=== PATIENT | female | born 1990 | race Caucasian/White ===

== ENCOUNTER 2019-06-14 14:06 | Emergency (ER) | payer OTHER, SELFPAY ==
[2019-06-14 14:24] VITALS: BP 129/75; PULSE 79; RESP 16; TEMP 36.1; O2SAT 95; BMI 36.6
--- NOTE | 2019-06-14 14:51 | NUR.SHIFT ---
Patient was at work when she got stuck with glass. Patient reports the glass stuck her in the tip of her left index finger.
--- NOTE | 2019-06-14 15:23 | ED_ITS ---
HPI - Extremity Problem General: Chief complaint: Extremity Injury, Upper Stated complaint: needle stick Time Seen by Provider: 06/14/19 14:55 History of Present Illness: HPI Narrative: Patient comes in today for complaints of a needlestick to her left index finger. Patient was cleaning up in surgery and reached down and punctured her skin in her left index finger with a piece of glass. Patient reports contamination with blood and body fluids. Patient reports no foreign body. Review of Systems General: Reports: 10 or more systems reviewed and unremarkable except in HPI and below Skin/Breast: Reports: other (left index finger) PFSH ED PFSH: Statuses (acute, chronic, etc) shown below reflect problem list status as previously entered and may not be historically accurate Social History Smoking and tobacco status: current every day smoker Physical Exam Const: COMMON NORMALS: no apparent distress and oriented x3 GENERAL APPEARANCE: cooperative HENMT: COMMON NORMALS: normocephalic, external ears normal, EAC's normal, TM's normal bilaterally and external nose normal HEAD & SCALP: normal to inspection and normocephalic FACE & SINUS: normal facial exam NOSE: external nose normal GENERAL EAR: hearing not grossly impaired EXTERNAL EAR: Yes external ears normal EXTERNAL AUDITORY CANAL: EAC's normal TYMPANIC MEMBRANE: TM's normal bilaterally MOUTH: oral and palatal mucosa normal THROAT: posterior oropharynx normal Eye: COMMON NORMALS: PERRL and EOMs intact bilaterally PUPIL: Yes PERRL Neck/C-Spine: COMMON NORMALS: full ROM and no lymphadenopathy Lymph: LYMPHATIC: no lymphedema noted Chest: COMMONS NORMALS: inspection of chest normal and palpation of chest normal Resp: COMMON NORMALS: normal respiratory effort and clear to auscultation bilaterally AUSCULTATION: clear to auscultation bilaterally Cardio: COMMON NORMALS: regular rate and regular rhythm RATE: regular rate RHYTHM: regular rhythm GI: COMMON NORMALS: normal to inspection, nondistended, normoactive bowel sounds and non-tender : COMMON NORMALS: Yes no CVA tenderness BLADDER/KIDNEY EXAM: Yes no CVA tenderness Back/Pelvis: COMMON NORMALS: no CVA tenderness and thoracic and lumbar spine normal to inspection Extremity: COMMON NORMALS: normal to inspection GENERAL: No edema Neuro: COMMON NORMALS: oriented x3, moves all extremities and no focal motor deficits Psych: COMMON NORMALS: mental status grossly normal and cooperative Skin: COMMON NORMALS: no rashes or lesions noted GENERAL SKIN EXAM: no rashes or lesions noted OTHER: small puncture wound to left index finger Course Vital Signs: Vital signs: Vital Signs Temperature 97 F L 06/14/19 14:24 Pulse Rate 79 06/14/19 14:24 Respiratory Rate 16 06/14/19 14:24 Blood Pressure 129/75 06/14/19 14:24 Pulse Oximetry 95 06/14/19 14:24 MDM - Extremity (Nontraumatic) MDM Narrative: Medical decision making narrative: Patient comes in with a injury to the left index finger from a puncture wound that occurred during surgical cleanup. Patient had gotten stuck by a possible shard of glass or bone fragment that was left on the floor after surgery. Exam noted no foreign body. Differential diagnosis wound infection, foreign body, need for treatment post exposure. Laboratory blood draw was done for CBC CMP and HIV and hepatitis B and C. Patient was started on prophylaxis postexposure medication. Patient was informed to follow-up with employee health nurse and referred to the packet for the number for her. Patient reported understanding of care plan and need for follow-up in 1 month. Lab Data: Labs: Lab Results 06/14/19 Range/Units 15:20 WBC 6.7 (4.0-10.0) 10^3/ uL RBC 4.96 (4.1-5.3) 10^6/u L Hgb 13.8 (11.5-15.3) g/dL Hct 42.8 (37.0-47.0) % MCV 86.3 (81-99) fL MCH 27.8 L (28.0-34.0) pg MCHC 32.2 (30.0-36.0) g/dL RDW 12.0 L (12.1-15.1) % Plt Count 294 (130-400) 10^3/c mm MPV 8.9 (7.4-10.4) fL Neut % (Auto) 67.9 % Lymph % (Auto) 23.0 % Dickson % (Auto) 8.3 % Eos % (Auto) 0.4 % Baso % (Auto) 0.3 % Neut # (Auto) 4.6 (1.8-7.7) 10^3/u L Lymph # (Auto) 1.5 (0.8-4.8) 10^3/u L Dickson # (Auto) 0.6 (0.2-0.9) 10^3/u L Eos # (Auto) 0.0 (0.0-0.8) 10^3/u L Baso # (Auto) 0.0 (0.0-0.1) 10^3/u L Nucleated RBC % (a uto) 0 % Nucleated RBCs # 0.0 /100WBC Discharge Plan Discharge Patient Disposition: Home, Self-Care Clinical Impression: Needle stick injury of finger Condition: Stable Prescriptions: New raltegravir 400 mg tablet 400 mg PO BID Qty: 56 RF: 0 emtricitabine-tenofovir (TDF) 200-300 mg tablet 1 tab PO DAILY Qty: 28 RF: 0 Discharge Orders: Discharge Order (Routine); Ordered 06/14/19 Ordered By: Preston Mayer Discharge Diet: Usual diet Discharge Activity: Increase activity as tolerated Patient Instructions: Needle Stick Injuries (ED) Activity Restrictions/Additional Instructions: Drink plenty of water Medications as directed Monitor site for infection Follow-up with employee health nurse Coding Level of Care Code ED Machine Engraver for Marilu Briones Exam Problem Focused
[2019-06-14 15:28] LABS: Basophils % 0.3 %; Eosinophils % 0.4 %; Hematocrit 42.8 % (37.0-47.0); Hemoglobin 13.8 g/dL (11.5-15.3); Lymphocytes # 1.5 10^3/uL (0.8-4.8); Mean Corpuscular HGB Conc 32.2 g/dL (30.0-36.0); Mean Corpuscular Hemoglobin 27.8 pg (28.0-34.0); Mean Corpuscular Volume 86.3 fL (81-99); Mean Platelet Volume 8.9 fL (7.4-10.4); Monocytes # 0.6 10^3/uL (0.2-0.9); Monocytes % 8.3 %; Neutrophils # 4.6 10^3/uL (1.8-7.7); Neutrophils % 67.9 %; Nucleated Red Blood Cells % 0 %; Platelet Count 294 10^3/cmm (130-400); Red Blood Count 4.96 10^6/uL (4.1-5.3); White Blood Count 6.7 10^3/uL (4.0-10.0)
[2019-06-14 15:45] LABS: Alanine Aminotransferase 17 U/L (0-33); Albumin Level 4.5 g/dL (3.5-5.2); Alkaline Phosphatase 83 IU/L (35-105); Anion Gap 16.5 (5-19); Aspartate Amino Transferase 20 U/L (0-32); Blood Urea Nitrogen 16 mg/dL (6-20); Calcium 9.9 mg/Dl (8.6-10.0); Carbon Dioxide 20 mmol/L (22-29); Chloride 104 mmol/L (98-107); Globulin 4.4 g/dL (1.3-4.6); Glomerular Filtration Rate 100.4 mL/min (90-130); Glucose 80 mg/dL (74-109); Potassium 3.5 mmol/L (3.5-5.1); Sodium 137 mmol/L (136-145); Total Bilirubin 0.3 mg/dL (0.15-1.2); Total Protein 8.9 g/dL (6.6-8.7)
[2019-06-14 15:46] VITALS: BP 134/83; PULSE 79; RESP 16; O2SAT 98
[2019-06-14 17:10] LABS: Hepatitis A Antibody IgM. Non-Reactive (Nonreactive); Hepatitis B Surface AB. 3.5 (0-8.5); Hepatitis B Surface Antigen. Non-Reactive (Nonreactive); Hepatitis C Virus Antibody Non-Reactive (Nonreactive)
[2019-06-15 08:31] LABS: HIV 1 & 2 Antibody Non-Reactive (Non-Reactiv); HIV 1 & 2 Antigen Non-Reactive (Non-Reactiv)
== END 2019-06-14 15:47 | disposition home or self-care (01) ==
PROVIDERS: Emergency Provider Nurse Practitioner Family
DX: S61.231A Puncture wound without foreign body of left index finger without damage to nail, initial encounter (principal); W46.0XXA Contact with hypodermic needle, initial encounter; Y92.234 Operating room of hospital as the place of occurrence of the external cause; Y99.0 Civilian activity done for income or pay; F17.210 Nicotine dependence, cigarettes, uncomplicated
CPT/HCPCS: 36415; 80053; 85025; 86705; 86706; 86709; 86803; 87340; 99281

== ENCOUNTER → 2019-07-22 10:32 | Outpatient (BNVA) | payer OTHER, SELFPAY | PROVIDERS: Visit Provider Obstetrics & Gynecology | DX: Z30.9 Encounter for contraceptive management, unspecified (principal) | CPT/HCPCS: 81025 ==

== ENCOUNTER → 2020-05-09 10:30 | Outpatient (BNVA) | payer OTHER, SELFPAY | PROVIDERS: Visit Provider Nurse Practitioner Women's Health | DX: Z01.419 Encounter for gynecological examination (general) (routine) without abnormal findings (principal); Z11.3 Encounter for screening for infections with a predominantly sexual mode of transmission; N76.0 Acute vaginitis; B96.89 Other specified bacterial agents as the cause of diseases classified elsewhere; N92.6 Irregular menstruation, unspecified; N60.19 Diffuse cystic mastopathy of unspecified breast | CPT/HCPCS: 87491; 87591; 87661; 88175 ==

== ENCOUNTER → 2020-10-24 11:20 | Outpatient (BNVA) | payer OTHER, SELFPAY | PROVIDERS: Visit Provider Obstetrics & Gynecology | DX: Z20.2 Contact with and (suspected) exposure to infections with a predominantly sexual mode of transmission (principal) | CPT/HCPCS: 87491; 87591; 87661 ==

== ENCOUNTER → 2021-01-17 15:34 | Outpatient (BNVA) | payer OTHER, SELFPAY | PROVIDERS: Visit Provider Nurse Practitioner Family | DX: R53.83 Other fatigue (principal); R00.2 Palpitations; R53.82 Chronic fatigue, unspecified; F41.1 Generalized anxiety disorder | CPT/HCPCS: 80053; 80061; 82607; 83036; 84443 ==

== ENCOUNTER 2021-10-14 18:25 | Emergency (ER) | payer OTHER, SELFPAY ==
--- NOTE | 2021-10-14 18:28 | W.ED.WOUNDLC ---
HPI - Wound/Laceration General: Stated Complaint: Needle Stick Time Seen by Provider: 10/14/21 18:27 History of Present Illness: Patient is a 30-year-old female comes to the ED with an accidental needlestick injury. 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 While the OR patient was being sutured up patient had multipleaccidental puncture wounds from suture in left hand. She denies any history of hepatitis. Denies any other complaints or symptoms. Associated symptoms: Denies chills, fever(s), nausea or vomiting Review of Systems Const: Denies: fever(s), chills or fatigue Eyes: Denies: change in vision or eye discomfort ENMT: Denies: throat pain, odynophagia, nasal discharge or nasal congestion Card: Denies: chest pain, palpitations, edema, swelling of feet/ankles, dyspnea on exertion or orthopnea Resp: Denies: dyspnea, productive cough or non-productive cough GI: Denies: abdominal pain, nausea, vomiting, diarrhea, constipation or hematochezia : Denies: flank pain, dysuria or hematuria Musc: Denies: neck pain, back pain or extremity swelling Skin/Breast: Reports: new lesions (Multiple small superficial puncture wounds to left index finger); Denies: rash Neuro: Denies: headache(s), numbness in extremities or weakness in extremities PFS ED PFSH: Medical History Concern about STD in female without diagnosis No pertinent past medical history neghx: htn,dm,thyroid,dvt/pe Surgical History No pertinent past surgical history Family History Grandmother Hypertension maternal Denies family history of Colon cancer Ovarian cancer Diabetes Heart disease Hypercholesteremia Breast cancer Uterine cancer Thyroid disease Stroke Social History Additional social history: - Tobacco use: quit smoking 09/2020 Alcohol use: socially 3 times per week Drug use: denies Physical Exam Const: COMMON NORMALS: no acute distress, patient oriented x3, healthy appearing and alert GENERAL APPEARANCE: cooperative and comfortable HENMT: COMMON NORMALS: normocephalic HEAD & SCALP: normocephalic MOUTH: Normal oral and palatal mucosa present THROAT: posterior oropharynx normal and uvula midline Neck/C-Spine: COMMON NORMALS: supple GENERAL: Yes normal visual inspection Resp: COMMON NORMALS: normal respiratory effort, No retractions, No use of accessory muscles and clear to auscultation bilaterally AUSCULTATION: clear to auscultation bilaterally Cardio: COMMON NORMALS: regular rate, regular rhythm, S1 normal heart sound present, S2 normal heart sound present, No gallops present (Cardio), No clicks present (Cardio), No murmurs present (Cardio) and Peripheral pulses 2+ throughout RATE: regular rate RHYTHM: regular rhythm HEART SOUNDS: S1 normal heart sound present and S2 normal heart sound present PERIPHERAL PULSES: Peripheral pulses 2+ throughout GI: COMMON NORMALS: Normal to inspection, nondistended, normoactive bowel sounds present, Soft to palpation, non-tender and no masses PALPATION: Yes Soft to palpation : COMMON NORMALS: Yes no CVA tenderness BLADDER/KIDNEY EXAM: Yes no CVA tenderness Back/Pelvis: COMMON NORMALS: no CVA tenderness Neuro: COMMON NORMALS: patient oriented x3 and moves all extremities SENSORIUM/ORIENTATION: Yes alert Skin: NARRATIVE SKIN EXAM: Multiple small superficial puncture wounds to left hand?second digit. No signs of infection or active bleeding noted. MDM - Wound/Laceration Medical Decision Making Patient is a 30-year-old female who comes to the ED after having accidental needlestick in OR today. 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 She has multiple small superficial puncture wounds to the left index finger. No signs of infection or bleeding noted. CBC, CMP, hepatitis and HIV labs were ordered and patient was stable for discharge home and was sent directly over to lab to get lab drawn. She was told to call [facility] for results. She was also told to follow-up with PCP in the next 4 to 6 weeks to have labs rechecked. Return ED precautions given. Patient is to agree with plan. Lab Data I reviewed the patient's lab results. Laboratory Results Hepatitis A IgM Ab Non-reactive (Nonreactive) 10/14/21 18:42 Hep Bs Antigen Non-reactive (Nonreactive) 10/14/21 18:42 Hep Bs Antibody 3.5 (11.5-1000) L 10/14/21 18:42 Hep B Core Total Ab Non-reactive (Nonreactive) 10/14/21 18:42 Hepatitis C Antibody Non-reactive (Nonreactive) 10/14/21 18:42 HIV 1&2 Ab & HIV 1 Ag Non-reactive (Non-Reactiv) 10/14/21 18:42 HIV 1&2 Antibody Non-reactive (Non-Reactiv) 10/14/21 18:42 Discharge Plan Discharge Patient Disposition: Home Clinical Impression: Accidental needlestick injury with exposure to body fluid Condition: Stable Prescriptions: No Action vortioxetine 20 mg tablet 20 mg PO DAILY Qty: 90 2RF silver sulfadiazine [Silvadene] 1 % cream 1 applic topical DAILY Qty: 25 0RF Rx Instructions: apply a 1.5 mm thickness Discharge Orders: Discharge ED (Routine); Ordered 10/14/21 Ordered By: Morales Glover Referrals: Anisha Clemente FNP-C [Primary Care Provider] - Discharge Diet: Regular Discharge Activity: Increase activity as tolerated Patient Instructions: Needle Stick Injuries (ED) Activity Restrictions/Additional Instructions: Follow-up with medical provider as directed. Have labs (CBC, CMP, Hepatitis panel and HIV) repeated in the next 4-6 weeks. Return to the ER or your medical provider if condition worsens. Please read and understand discharge instructions. Thank you for choosing [facility] for your healthcare needs today. Please realize this is an emergency room and that we are providing you with a medical screening exam and this may not be complete and all inclusive of all the testing and or work up that you may need to determine your ailment or severity of your illness. It is very important that you follow up as instructed or that you return to the Emergency Department should you have concerns or if your condition changes or worsens in any way. Coding Level of Care Code ED Traffic Safety Administrator for Marilu Fwcrystal Exam Comprehensive
[2021-10-14 19:42] LABS: HIV 1 & 2 Antibody Non-Reactive (Non-Reactiv); HIV 1 & 2 Antigen Non-Reactive (Non-Reactiv)
[2021-10-14 22:58] LABS: Hepatitis A Antibody IgM Non-Reactive (Nonreactive); Hepatitis B Core AB, Total Non-Reactive (Nonreactive); Hepatitis B Surface AB 3.5 (11.5-1000); Hepatitis C Virus Antibody Non-Reactive (Nonreactive)
[2021-10-14 23:33] LABS: Hepatitis B Surface Antigen Non-Reactive (Nonreactive)
== END 2021-10-14 19:06 | disposition home or self-care (01) ==
PROVIDERS: Emergency Provider Physician Assistant; PCP Nurse Practitioner Family
DX: S61.432A Puncture wound without foreign body of left hand, initial encounter (principal); W46.0XXA Contact with hypodermic needle, initial encounter; Z87.891 Personal history of nicotine dependence
CPT/HCPCS: 36415; 86705; 86706; 86709; 86803; 87340; 87806; 99281

== ENCOUNTER → 2022-09-19 10:34 | Outpatient (BNVA) | payer OTHER, SELFPAY | PROVIDERS: PCP Family Medicine; Visit Provider Family Medicine | DX: Z00.00 Encounter for general adult medical examination without abnormal findings (principal); M79.643 Pain in unspecified hand | CPT/HCPCS: 80053; 80061; 83036; 84443; 85025; 85651; 86038; 86140; 86431 ==

== ENCOUNTER → 2023-10-22 10:30 | Outpatient (BNVA) | payer OTHER, SELFPAY | PROVIDERS: PCP Family Medicine; Visit Provider Nurse Practitioner Family | DX: L23.9 Allergic contact dermatitis, unspecified cause (principal); S21.052A Open bite of left breast, initial encounter; L08.9 Local infection of the skin and subcutaneous tissue, unspecified; W50.3XXA Accidental bite by another person, initial encounter | CPT/HCPCS: 87070 ==